=== PATIENT | female | born 1945 | race Two or more races ===

== ENCOUNTER 2020-02-11 09:39 | Emergency (ER) | payer OTHER ==
[~2020-02-11] VITALS: Ht 152.4 cm; Wt 47.6 kg
[2020-02-11] MEDS ORDERED: CLONAZEPAM0.5 M1 (09:56)
[2020-02-11] MEDS ORDERED: PROTONIX40 M1 (09:56)
[2020-02-11] MEDS ORDERED: APETIGEN-PLUS1 EACH PO (19:43)
[2020-02-11] MEDS ORDERED: PEPCID AC20 MG PO (19:43)
[2020-02-11] MEDS ORDERED: VISTARIL50 MG PO (19:43)
[2020-02-11] MEDS ORDERED: INTESTINEX680 M1 PO (19:43)
[2020-02-11] MEDS ORDERED: ONDANSETRON ODT4 MG SL (19:43)
== END 2020-02-11 19:58 | disposition home or self-care (01) ==
LOC: ER 09:39
DX: K29.60 Other gastritis without bleeding (principal); N20.0 Calculus of kidney; K76.89 Other specified diseases of liver; R10.13 Epigastric pain; F41.8 Other specified anxiety disorders

== ENCOUNTER 2020-03-31 05:56 | Day surgery (SDC) | payer OTHER ==
[~2020-03-31 05:56] MED LIST: APETIGEN-PLUS1 EACH PO; CLONAZEPAM0.5 M1; CLONAZEPAM0.5 MG PO; FLOVENT; INTESTINEX680 M1 PO; ONDANSETRON ODT4 MG SL; PEPCID AC20 MG PO; PROTONIX40 M1; PROTONIX40 MG PO; VISTARIL50 MG PO
[2020-03-31] MEDS ORDERED: ULTRACET PO (09:19)
[2020-03-31] MEDS ORDERED: MACROBID 100 M100 MG PO (09:19)
== END 2020-03-31 12:55 | disposition home or self-care (01) ==
LOC: CIR.AMB 05:56
PROVIDERS: ATTEND Obstetrics & Gynecology Gynecology
DX: N81.3 Complete uterovaginal prolapse (principal); Z20.828 Contact with and (suspected) exposure to other viral communicable diseases

== ENCOUNTER → 2020-08-27 | Day surgery (SDC) | payer OTHER ==
[~2020-08-27] MED LIST changes: +MACROBID 100 M100 MG PO; +ULTRACET PO
== END | disposition home or self-care (01) ==
LOC: ADM 08-20 12:30 → AMB-ENDOS 06:46
PROVIDERS: ATTEND Surgery
DX: D13.0 Benign neoplasm of esophagus (principal); D13.1 Benign neoplasm of stomach; D13.2 Benign neoplasm of duodenum; K62.89 Other specified diseases of anus and rectum; Z20.828 Contact with and (suspected) exposure to other viral communicable diseases; K44.9 Diaphragmatic hernia without obstruction or gangrene